=== PATIENT | male | born 1990 | race Two or more races ===

== ENCOUNTER 2022-07-03 20:53 | Emergency (ER) | payer MEDICAID ==
[~2022-07-03] VITALS: Ht 180.3 cm; Wt 120.5 kg
[2022-07-03] MEDS ORDERED: KETOROLAC TROMETHAMINE 30 MG/ML VIAL IM ONE (21:30)
[2022-07-03 21:53] LABS: BASOPHILS % (AUTO) 0.4 % (0.0-2.0); EOSINOPHILS % (AUTO) 2.3 % (1.0-6.0); HEMATOCRIT 48.8 % (41-53); HEMOGLOBIN 16.7 g/dL (13.5-17.5); LYMPHOCYTES # (AUTO) 2.7 K/uL (1.0-4.8); LYMPHOCYTES % (AUTO) 24.8 % (22.0-44.0); MEAN CORPUSCULAR HEMOGLOBIN 31.5 pg (26.0-34.0); MEAN CORPUSCULAR HGB CONC 34.1 G/dL (31.0-37.0); MEAN CORPUSCULAR VOLUME 92 fL (80-100); MONOCYTES % (AUTO) 9.1 % (2.0-9.0); NEUTROPHILS # (AUTO) 6.8 K/uL (1.8-7.7); NEUTROPHILS % (AUTO) 63.4 % (40.0-70.0); PLATELET COUNT (AUTO) 313 K/uL (150-450); RED BLOOD CELL COUNT(AUTO) 5.29 MIL/uL (4.50-5.90); RED CELL DISTRIBUTION WIDTH 13.3 % (11.5-14.5)
[2022-07-03 22:03] LABS: ANION GAP 9 mmol/L (8-16); CALCIUM, TOTAL 9.3 mg/dL (8.8-10.5); CARBON DIOXIDE 28 mmol/L (22-29); CHLORIDE 103 mmol/L (98-107); CREATININE 0.79 mg/dL (0.60-1.30); GLOMERULAR FILTR. RATE CALC > 60 mL/min (>60); GLUCOSE,RANDOM 104 mg/dL (70-110); POTASSIUM 3.9 mmol/L (3.5-5.1); SODIUM SERUM 140 mmol/L (136-145); UREA NITROGEN, BLOOD 10 mg/dL (7-18)
[2022-07-03 22:08] LABS: ALANINE AMINOTRANSFERASE 31 U/L (12-78); ALKALINE PHOSPHATASE 102 U/L (46-116); ASPARTATE AMINOTRANSFERASE 23 U/L (15-37); BILIRUBIN,TOTAL 0.4 mg/dL (0.1-1.0); TOTAL PROTEIN, SERUM 7.3 g/dL (6.4-8.2)
[2022-07-03 23:09] VITALS: BP 142/102
[2022-07-03] MEDS ORDERED: CYCL-448 PO (23:21)
== END 2022-07-04 00:05 | disposition home or self-care (01) ==
LOC: EMS 20:53
DX: M76.51 Patellar tendinitis, right knee (principal)
CPT/HCPCS: 99285; 93971; 80053; 85025; 36415; 96372; J1885

== ENCOUNTER 2023-09-01 09:14 | Emergency (ER) | payer MEDICAID, OTHER ==
[~2023-09-01] VITALS: Ht 177.8 cm; Wt 122.7 kg
[~2023-09-01 09:14] MED LIST: CYCL-448 PO
[2023-09-01 09:19] VITALS: TEMP 98.5
[2023-09-01 09:30] VITALS: BP 138/74; PULSE 97; RESP 16
== END 2023-09-01 10:14 | disposition home or self-care (01) ==
LOC: EMS 09:18
DX: G89.29 Other chronic pain (principal); M25.572 Pain in left ankle and joints of left foot; F17.210 Nicotine dependence, cigarettes, uncomplicated; F12.90 Cannabis use, unspecified, uncomplicated
CPT/HCPCS: 99284

== ENCOUNTER 2023-10-29 20:35 | Emergency (ER) | payer OTHER ==
[~2023-10-29] VITALS: Ht 177.8 cm; Wt 113.6 kg
[~2023-10-29 20:35] MED LIST changes: +AMOX250C4 PO; +GUAIF600 PO; +IBUP-1492 PO; +PHEN177S49 PO
[2023-10-29 21:22] VITALS: TEMP 97.7
[2023-10-29 21:33] LABS: COVID AG,FIA SOURCE NASAL SWAB
[2023-10-29 21:53] LABS: INFLUENZA TYPE A NEGATIVE FOR TYPE A (NEGATIVE); INFLUENZA TYPE B NEGATIVE FOR TYPE B (NEGATIVE); SARS-COV2 (COVID) ANTIGEN,FIA Negative (Negative)
[2023-10-30] MEDS ORDERED: ALBU18HF12 IH (01:32)
[2023-10-30 01:40] VITALS: BP 140/85; PULSE 68; RESP 20; O2SAT 100
== END 2023-10-30 01:41 | disposition home or self-care (01) ==
LOC: EMS 20:35
DX: J12.9 Viral pneumonia, unspecified (principal); F17.210 Nicotine dependence, cigarettes, uncomplicated; F12.90 Cannabis use, unspecified, uncomplicated; Z98.890 Other specified postprocedural states; Z20.822 Contact with and (suspected) exposure to COVID-19
CPT/HCPCS: 71045; 87804; 99284

== ENCOUNTER 2024-02-05 10:47 | Emergency (ER) | payer OTHER ==
[~2024-02-05] VITALS: Ht 175.3 cm; Wt 100.0 kg
[~2024-02-05 10:47] MED LIST changes: +ALBU18HF12 IH
[2024-02-05 10:51] VITALS: TEMP 98.8
[2024-02-05 11:40] LABS: BASOPHILS % (AUTO) 0.4 % (0.0-2.0); EOSINOPHILS % (AUTO) 4.1 % (1.0-6.0); HEMATOCRIT 49.3 % (41-53); HEMOGLOBIN 16.6 g/dL (13.5-17.5); LYMPHOCYTES # (AUTO) 1.1 K/uL (1.0-4.8); LYMPHOCYTES % (AUTO) 17.4 % (22.0-44.0); MEAN CORPUSCULAR HEMOGLOBIN 31.4 pg (26.0-34.0); MEAN CORPUSCULAR HGB CONC 33.8 G/dL (31.0-37.0); MEAN CORPUSCULAR VOLUME 93 fL (80-100); MONOCYTES # (AUTO) 0.6 K/uL (0.1-1.0); MONOCYTES % (AUTO) 9.9 % (2.0-9.0); NEUTROPHILS # (AUTO) 4.5 K/uL (1.8-7.7); NEUTROPHILS % (AUTO) 68.2 % (40.0-70.0); PLATELET COUNT (AUTO) 264 K/uL (150-450); WHITE BLOOD COUNT (AUTO) 6.6 K/uL (4.5-11.0)
[2024-02-05 11:53] LABS: ANION GAP 3 mmol/L (8-16); CALCIUM, TOTAL 9.1 mg/dL (8.8-10.5); CARBON DIOXIDE 30 mmol/L (22-29); CHLORIDE 101 mmol/L (98-107); CREATININE 0.85 mg/dL (0.60-1.30); GLOMERULAR FILTR. RATE CALC > 60 mL/min (>60); GLUCOSE,RANDOM 94 mg/dL (70-110); POTASSIUM 4.2 mmol/L (3.5-5.1); SODIUM SERUM 134 mmol/L (136-145); UREA NITROGEN, BLOOD 11 mg/dL (7-18)
[2024-02-05 11:55] LABS: LIPASE 21 U/L (16-77)
[2024-02-05 11:58] LABS: ALBUMIN 3.8 g/dL (3.4-5.0); BILIRUBIN,DIRECT 0.3 mg/dL (0.00-0.20); BILIRUBIN,TOTAL 1.2 mg/dL (0.1-1.0); TOTAL PROTEIN, SERUM 7.2 g/dL (6.4-8.2)
[2024-02-05 12:07] LABS: APPEARANCE,URINE CLEAR (CLEAR); BILIRUBIN,URINE NEGATIVE (NEGATIVE); COLOR,URINE YELLOW (YELLOW); GLUCOSE, URINE (UA) NEGATIVE (NEGATIVE); KETONES,URINE NEGATIVE (NEGATIVE); LEUKOCYTE ESTERASE ,URINE NEGATIVE (NEGATIVE); NITRATE,URINE NEGATIVE (NEGATIVE); OCCULT BLOOD,URINE TRACE (NEGATIVE); PH,URINE 6.5 (5.0-8.0); PROTEIN,URINE TRACE mg/dL (NEGATIVE); SPECIFIC GRAVITIY, URINE 1.026 (1.003-1.030)
[2024-02-05] MEDS: SODIUM CHLORIDE 0.9% 1,000 ML IV ONE (12:07)
[2024-02-05] MEDS: ONDANSETRON HCL 4 MG/2 ML VIAL IVP ONE (12:07)
[2024-02-05 12:29] LABS: BACTERIA,URINE None Seen /HPF (None Seen); RBC,URINE 0-2 /HPF (0-2); SQUAMOUS EPITHELIAL CELL,UR Few /LPF (None Seen); WBC,URINE None Seen /HPF (0-5)
[2024-02-05] MEDS: ACETAMINOPHEN 500 MG TABLET PO ONE (13:11)
[2024-02-05 14:23] VITALS: BP 139/77; PULSE 90; RESP 18; O2SAT 96
== END 2024-02-05 14:23 | disposition home or self-care (01) ==
LOC: EMS 10:47
DX: K52.9 Noninfective gastroenteritis and colitis, unspecified (principal); F17.210 Nicotine dependence, cigarettes, uncomplicated; F12.90 Cannabis use, unspecified, uncomplicated; Z98.890 Other specified postprocedural states
CPT/HCPCS: 99283; 96374; 96361; 80048; 80076; 81001; 83690; 85025; 36415; J2405; J7030

== ENCOUNTER 2024-08-14 04:56 | Emergency (ER) | payer OTHER ==
[~2024-08-14] VITALS: Ht 177.8 cm; Wt 90.9 kg
[2024-08-14 05:10] VITALS: TEMP 97.9
[2024-08-14] MEDS ORDERED: BENZ-227 PO (08:14)
[2024-08-14] MEDS ORDERED: PSEU-191 PO (08:14)
[2024-08-14] MEDS ORDERED: AZIT-167 PO (08:14)
[2024-08-14 08:20] VITALS: BP 122/78; PULSE 85; RESP 14; O2SAT 98
== END 2024-08-14 08:43 | disposition home or self-care (01) ==
LOC: EMS 05:13
DX: J98.4 Other disorders of lung (principal); F17.210 Nicotine dependence, cigarettes, uncomplicated; F12.90 Cannabis use, unspecified, uncomplicated; Z98.890 Other specified postprocedural states; Z79.899 Other long term (current) drug therapy
CPT/HCPCS: 99282; 99283

== ENCOUNTER 2024-11-14 02:22 | Emergency (ER) | payer OTHER ==
[~2024-11-14] VITALS: Ht 175.3 cm; Wt 90.9 kg
[~2024-11-14 02:22] MED LIST changes: +AZIT-167 PO; +BENZ-227 PO; +PSEU-191 PO
[2024-11-14 02:39] VITALS: TEMP 97.9
[2024-11-14 02:59] LABS: COVID AG,FIA SOURCE NASAL SWAB
[2024-11-14 03:13] LABS: INFLUENZA TYPE A NEGATIVE FOR TYPE A (NEGATIVE); INFLUENZA TYPE B NEGATIVE FOR TYPE B (NEGATIVE)
[2024-11-14 03:15] LABS: SARS-COV2 (COVID) ANTIGEN,FIA Negative (Negative)
[2024-11-14 04:00] VITALS: BP 125/88; PULSE 72; RESP 17; O2SAT 98
== END 2024-11-14 04:21 | disposition home or self-care (01) ==
LOC: EMS 02:23
DX: J06.9 Acute upper respiratory infection, unspecified (principal); R05.9 Cough, unspecified; F12.90 Cannabis use, unspecified, uncomplicated; F17.210 Nicotine dependence, cigarettes, uncomplicated; Z98.890 Other specified postprocedural states; Z79.899 Other long term (current) drug therapy; Z20.822 Contact with and (suspected) exposure to COVID-19
CPT/HCPCS: 87804; 99283